=== PATIENT | female | born 1950 | race Caucasian/White ===

== ENCOUNTER 2017-09-13 22:34 | Emergency (ER) | payer MEDICARE, MEDICAID ==
--- NOTE | 2017-09-13 22:46 | EDM.PDOC ---
ED HPI GENERAL MEDICAL PROBLEM - General Stated Complaint: ARM PAIN Time Seen by Provider: 09/13/17 22:42 Source of Information: Reports: Patient History Limitations: Reports: No Limitations - History of Present Illness INITIAL COMMENTS - FREE TEXT/NARRATIVE: c/o LUE swelling and pulsation h/o lymphoma, no current treatments h/o DM, on Lantus x 15y, d/t insurance changed to Levemir 3m ago, however BS running higher and recently changed to NeurOp went to [employer] today, working at home, no injury states she has swelling and firmness and a pulsation on medial aspect of L arm since this afternoon, however exam is wnl no recent labs, will check Rt arm Pain Score (Numeric/FACES): 2 - Related Data Allergies Allergy/AdvReac Type Severity Reaction Status Date / Time amoxicillin trihydrate Allergy Hives Verified 09/13/17 23:59 [From Augmentin] cephalexin monohydrate Allergy Hives Verified 09/13/17 23:59 [From Keflex] Penicillins Allergy Hives Verified 09/13/17 23:59 potassium clavulanate Allergy Hives Verified 09/13/17 23:59 [From Augmentin] Sulfa (Sulfonamide Allergy Vomiting Verified 09/13/17 23:59 Antibiotics) Home Meds: Home Meds Insulin Aspart [Novolog Flexpen] 14 - 15 units SQ TID 09/13/17 [History] Insulin Degludec [Tresiba Flextouch U-100] 44 units SQ BEDTIME 09/13/17 [History ] Levothyroxine 100 mcg PO TUTHSA 09/13/17 [History] Levothyroxine 200 mcg PO SUMOWEFR 09/13/17 [History] Lisinopril/Hydrochlorothiazide [Lisinopril-Hctz 10-12.5 mg Tab] 1 tab PO DAILY 09/13/17 [History] Social & Family History - Tobacco Use Smoking Status *Q: Never Smoker - Alcohol Use Days Per Week of Alcohol Use: 0 - Recreational Drug Use Recreational Drug Use: No ED ROS GENERAL - Review of Systems Review Of Systems: See Below Constitutional: Reports: No Symptoms HEENT: Reports: No Symptoms Respiratory: Reports: No Symptoms Cardiovascular: Reports: No Symptoms Endocrine: Reports: No Symptoms GI/Abdominal: Reports: No Symptoms : Reports: No Symptoms Musculoskeletal: Reports: No Symptoms Skin: Reports: Lumps Neurological: Reports: No Symptoms Psychiatric: Reports: No Symptoms Hematologic/Lymphatic: Reports: No Symptoms Immunologic: Reports: No Symptoms ED EXAM, GENERAL - Physical Exam Exam: See Below Exam Limited By: No Limitations General Appearance: Alert, WD/WN, No Apparent Distress Head: Atraumatic, Normocephalic Neck: Normal Inspection, Supple, Non-Tender, Full Range of Motion Respiratory/Chest: No Respiratory Distress Cardiovascular: Regular Rate, Rhythm GI/Abdominal: Soft, Non-Tender Back Exam: Normal Inspection Extremities: Other (UE with redundant adipose tissue b/l, no tender, no mass, no red, no warmth, no axillary LNs) Neurological: Alert, Oriented Psychiatric: Normal Affect, Normal Mood Skin Exam: Warm, Dry, Intact, Normal Color, No Rash Lymphatic: No Adenopathy Course - Vital Signs Last Recorded V/S: Last Vital Signs Temp 36.4 C 09/13/17 23:05 Pulse 83 09/13/17 23:05 Resp 17 09/13/17 23:05 BP 157/79 H 09/13/17 23:05 Pulse Ox 100 09/13/17 23:05 - Orders/Labs/Meds Orders: Active Orders 24 hr Category Date Time Status Extremity Non Vascular Rt [US] Stat Exams 09/14/17 01:05 Ordered Labs: Laboratory Tests 09/13/17 09/13/17 09/13/17 Range/Units 22:55 22:55 22:55 WBC 7.4 (4.5-12.0) X10-3/uL RBC 4.32 (3.23-5.20) x10(6)uL Hgb 12.5 (11.5-15.5) g/dL Hct 37.4 (30.0-51.3) % MCV 86.6 (80-96) fL MCH 29.0 (27.7-33.6) pg MCHC 33.5 (32.2-35.4) g/dL RDW 14.1 (11.5-15.5) % Plt Count 201 (125-369) X10(3)uL MPV 8.1 (7.4-10.4) fL Neut % (Auto) 58.5 (46-82) % Lymph % (Auto) 30.7 (13-37) % [place] % (Auto) 6.9 (4-12) % Eos % (Auto) 3 (1.0-5.0) % Baso % (Auto) 1 (0-2) % Neut # (Auto) 4.3 (1.6-8.3) # Lymph # (Auto) 2.3 (0.6-5.0) # [place] # (Auto) 0.5 (0.0-1.3) # Eos # (Auto) 0.2 (0.0-0.8) # Baso # (Auto) 0.1 (0.0-0.2) # D-Dimer, Quantitative 561 H (100-400) ng/mL Sodium 142 (135-145) mmol/L Potassium 4.3 (3.5-5.3) mmol/L Chloride 106 (100-110) mmol/L Carbon Dioxide 26 (21-32) mmol/L BUN 28 H (7-18) mg/dL Creatinine 1.2 H (0.55-1.02) mg/dL Est Cr Clr Drug Dosing TNP Estimated GFR (MDRD) 45 L (>60) BUN/Creatinine Ratio 23.3 H (9-20) Glucose 159 H (80-116) mg/dL Calcium 8.8 (8.6-10.2) mg/dL Total Bilirubin 0.3 (0.1-1.3) mg/dL AST 11 (5-25) IU/L ALT 16 (12-36) U/L Alkaline Phosphatase 82 (56-112) IU/L C-Reactive Protein (0.5-0.9) mg/dL Total Protein 6.6 (6.0-8.0) g/dL Albumin 3.8 (3.2-4.6) g/dL Globulin 2.8 g/dL Albumin/Globulin Ratio 1.4 09/13/17 Range/Units 22:55 WBC (4.5-12.0) X10-3/uL RBC (3.23-5.20) x10(6)uL Hgb (11.5-15.5) g/dL Hct (30.0-51.3) % MCV (80-96) fL MCH (27.7-33.6) pg MCHC (32.2-35.4) g/dL RDW (11.5-15.5) % Plt Count (125-369) X10(3)uL MPV (7.4-10.4) fL Neut % (Auto) (46-82) % Lymph % (Auto) (13-37) % [place] % (Auto) (4-12) % Eos % (Auto) (1.0-5.0) % Baso % (Auto) (0-2) % Neut # (Auto) (1.6-8.3) # Lymph # (Auto) (0.6-5.0) # [place] # (Auto) (0.0-1.3) # Eos # (Auto) (0.0-0.8) # Baso # (Auto) (0.0-0.2) # D-Dimer, Quantitative (100-400) ng/mL Sodium (135-145) mmol/L Potassium (3.5-5.3) mmol/L Chloride (100-110) mmol/L Carbon Dioxide (21-32) mmol/L BUN (7-18) mg/dL Creatinine (0.55-1.02) mg/dL Est Cr Clr Drug Dosing Estimated GFR (MDRD) (>60) BUN/Creatinine Ratio (9-20) Glucose (80-116) mg/dL Calcium (8.6-10.2) mg/dL Total Bilirubin (0.1-1.3) mg/dL AST (5-25) IU/L ALT (12-36) U/L Alkaline Phosphatase (56-112) IU/L C-Reactive Protein 1.0 H (0.5-0.9) mg/dL Total Protein (6.0-8.0) g/dL Albumin (3.2-4.6) g/dL Globulin g/dL Albumin/Globulin Ratio - Re-Assessments/Exams Free Text/Narrative Re-Assessment/Exam: 09/14/17 00:51 pt's labs reviewed, pt very irritable angry and even somewhat hostile, insisting that she cannot wait as she has been up since 5:30 AM and will be tired tomorrow I strongly encouraged her to stay, reviewed her labs with her, including her inc 'd d-dimer. I explained that she could have a DVT and that a RUE u/s could be obtained although it might be awhile as there were 2 other pts who needed to be seen. RUE swelling has been going on since early this afternoon. h/o lymphoma dx 2004, received CHOP over 7m and then a 2nd round of chemo ( refuxin), last saw oncologist 2009 who d/c'ed here then pt worked in radiology dept here until 2004, has been retired since 2004 here with 09/14/17 02:40 prelim report on RUE u/s is no DVT, full report pending pt may have reoccurrence of lymphoma, pt says she was told by oncologist that she will "have lymphoma in my body the rest of my life" I explained to pt that her inc'd d-dimer and slight inc'd CRP could indicate reoccurrence of lymphoma and that she see her oncologist and have additional imaging she had gone to oncology in [place], most recently Dr Silva pt insisted that she would see her Yeimi Montalvo DOCK MANAGER and would not follow my advice to see her oncologist she also has poor renal function, presumably from her longstanding DM, altho no comparison available Departure - Departure Time of Disposition: 02:45 Disposition: Home, Self-Care 01 Condition: Good Clinical Impression: Swelling of right upper extremity - Discharge Information Instructions: Cerebral Edema, Pediatric Referrals: Yeimi Montalvo, DOCK MANAGER [Primary Care Provider] - Additional Instructions: Continue current medications. See Yeimi Montalvo in the next 2 days. You will need additional imaging, most likely CT scans, which Ms Montalvo can coordinate with your oncologist. You should see your oncologist as well in the next 1-2 weeks. Return to ED if you feel worse or have additional symptoms. - My Orders Last 24 Hours: My Active Orders 09/14/17 01:05 Extremity Non Vascular Rt [US] Stat - Assessment/Plan Last 24 Hours: My Active Orders 09/14/17 01:05 Extremity Non Vascular Rt [US] Stat
--- NOTE | 2017-09-14 11:44 | US ---
INDICATION: Complains of soft tissue swelling right elbow - increased D-dimer, history of lymphoma 13 years ago. NON-VASCULAR RIGHT UPPER EXTREMITY ULTRASOUND: Multiple ultrasonic images in an area of pain and hardness above the right elbow medially revealed no superficial or deep venous thrombosis. The cephalic vein was not visualized. No mass was suggested. MTDD
== END 2017-09-14 02:58 | disposition home or self-care (01) ==
LOC: FB.ED 22:34
DX: R22.31 Localized swelling, mass and lump, right upper limb (principal); Z88.0 Allergy status to penicillin; Z88.8 Allergy status to other drugs, medicaments and biological substances; Z88.1 Allergy status to other antibiotic agents; Z88.2 Allergy status to sulfonamides; Z79.899 Other long term (current) drug therapy
CPT/HCPCS: 36415; 76881-RT; 80053; 85025; 85379; 86140; 99284

== ENCOUNTER 2024-06-11 16:48 | Emergency (ER) | payer MEDICARE, OTHER ==
[2024-06-11] MEDS ORDERED: predniSONE 20 MG Tab PO ONE (16:49)
[2024-06-11 17:38] LABS: BLOOD UREA NITROGEN,BUN 44 mg/dL (7-18); BUN/CREATININE RATIO 24.4 (9-20); CALCIUM 9.1 mg/dL (8.6-10.2); CARBON DIOXIDE,CO2 26 mmol/L (21-32); CHLORIDE,CL 104 mmol/L (100-110); CREATININE 1.8 mg/dL (0.55-1.02); EST CRCL DRUG DOSING (CG) 30.55 mL/min; ESTIMATED GFR 30 mL/min (>60); GLUCOSE RANDOM 288 mg/dL (80-116); POTASSIUM,K 5.7 mmol/L (3.5-5.3); SODIUM,NA 140 mmol/L (135-145)
[2024-06-11 17:38] LABS: BASE EXCESS VENOUS,POC -3 mmol/L (-2 - 3+); PCO2 VENOUS,POC 37 mmHg (41-51); PH VENOUS,POC 7.38 pH Units (7.32-7.43)
== END 2024-06-11 18:20 | disposition home or self-care (01) ==
LOC: FB.ED 16:48
DX: J40 Bronchitis, not specified as acute or chronic (principal); E11.9 Type 2 diabetes mellitus without complications; Z86.16 Personal history of COVID-19; Z90.49 Acquired absence of other specified parts of digestive tract; Z90.710 Acquired absence of both cervix and uterus; Z87.891 Personal history of nicotine dependence; Z88.0 Allergy status to penicillin; Z88.2 Allergy status to sulfonamides; Z88.1 Allergy status to other antibiotic agents; Z88.8 Allergy status to other drugs, medicaments and biological substances; Z79.4 Long term (current) use of insulin; Z79.890 Hormone replacement therapy; Z79.899 Other long term (current) drug therapy
CPT/HCPCS: 36415; 80048; 99284; J7512

== ENCOUNTER 2024-06-13 08:08 | Emergency (ER) | payer MEDICARE, OTHER ==
[2024-06-13] MEDS: EPINEPHrine 1:10,000 1 MG/10 ML Syringe IVPUSH ONE (08:10)
== END 2024-06-13 08:15 | disposition expired ==
LOC: FB.ED 08:08
DX: I46.9 Cardiac arrest, cause unspecified (principal); E11.9 Type 2 diabetes mellitus without complications; Z88.0 Allergy status to penicillin; Z88.2 Allergy status to sulfonamides; Z88.1 Allergy status to other antibiotic agents; Z88.8 Allergy status to other drugs, medicaments and biological substances; Z79.4 Long term (current) use of insulin; Z79.890 Hormone replacement therapy; Z79.899 Other long term (current) drug therapy; Z90.49 Acquired absence of other specified parts of digestive tract; Z90.710 Acquired absence of both cervix and uterus
CPT/HCPCS: 31500; 36680; 92950; 99285-25; 99291